=== PATIENT | male | born 1985 | race Caucasian/White ===

== ENCOUNTER 2020-12-07 16:29 | Emergency (ER) | payer BC ==
[~2020-12-07] VITALS: Ht 175.3 cm; Wt 83.5 kg
[2020-12-07 16:49] VITALS: Ht 175.3 cm; Wt 83.5 kg
[2020-12-07 19:29] VITALS: BP 118/68
== END 2020-12-07 19:29 | disposition home or self-care (01) ==
LOC: ED 16:29
DX: S76.912A Strain of unspecified muscles, fascia and tendons at thigh level, left thigh, initial encounter (principal); X58.XXXA Exposure to other specified factors, initial encounter; Y93.89 Activity, other specified; Y92.89 Other specified places as the place of occurrence of the external cause; Y99.8 Other external cause status